=== PATIENT | male | born 1970 | race African-American/Black ===

== ENCOUNTER 2020-10-23 20:35 | Emergency (ER) | payer BC ==
[~2020-10-23] VITALS: Ht 162.6 cm; Wt 86.0 kg
[2020-10-23] MEDS ORDERED: LOSARTAN POTASS50 MG PO (21:14)
[2020-10-23] MEDS ORDERED: CHOLESTEROL MED (21:15)
[2020-10-23 21:40] LABS: HEMOGLOBIN 16.2 g/dl (14.0-18.0); IMMATURE GRANULOCYTES 0.4 % (0.0-5.0); MEAN CELL VOLUME 93.9 fL CALC (80.0-100.0); MEAN CORPUSCULAR HGB CONC 33.1 g/dL CAL (32.0-36.0); NEUT# 3.75 thou/uL (1.82-7.42); RED BLOOD COUNT 5.22 mill/uL (4.70-6.10); RED CELL DISTRI WIDTH 13.5 % (11.5-15.5)
[2020-10-23 21:51] LABS: ALBUMIN 4.4 g/dL (3.2-5.0); ALKALINE PHOSPHATASE 54 u/l (38-126); ANION GAP 15 (6-22 (CALC)); BILIRUBIN, TOTAL 1.1 mg/dL (0.0-1.4); BUN 19 mg/dL (9-20); BUN/CREATININE RATIO 19 (12-20 (CALC)); CARBON DIOXIDE 22 mmol/l (22-30); CHLORIDE 104 mmol/l (95-108); GFR > 60 ML/MIN (>=60 (CALC)); GFR FOR AFR.AMER. > 60 ML/MIN (>=60 (CALC)); SGOT/AST 37 u/l (17-59); SODIUM 137 mmol/l (137-146); TOTAL PROTEIN 8.1 g/dL (6.3-8.2)
[2020-10-23 21:58] LABS: URINE BILIRUBIN - DIPSTICK NEGATIVE (NEGATIVE); URINE BLOOD DIPSTICK TRACE-LYSED (NEGATIVE); URINE COLOR YELLOW; URINE GLUCOSE - DIPSTICK NEGATIVE (NEGATIVE); URINE KETONE NEGATIVE (NEGATIVE); URINE LEUK ESTERASE NEGATIVE (NEGATIVE); URINE NITRITE - DIPSTICK NEGATIVE (Negative); URINE PROTEIN - DIPSTICK NEGATIVE (NEG-TRACE); URINE SPECIFIC GRAVITY >=1.030; URINE UROBILINOGEN - DIPSTICK 0.2 E.U./dL (0.2)
[2020-10-23] MEDS ORDERED: IBUPROFEN600 MG PO (22:14)
[2020-10-23 22:30] VITALS: BP 151/99
== END 2020-10-23 22:42 | disposition home or self-care (01) | DRG 556 ==
LOC: ED 20:35
PROVIDERS: Emergency Medicine
DX: M25.562 Pain in left knee (principal); E79.0 Hyperuricemia without signs of inflammatory arthritis and tophaceous disease; I10 Essential (primary) hypertension; R11.2 Nausea with vomiting, unspecified; R10.9 Unspecified abdominal pain
CPT/HCPCS: L1830

== ENCOUNTER 2022-05-29 20:56 | Emergency (ER) | payer BC ==
[~2022-05-29] VITALS: Ht 162.6 cm; Wt 86.0 kg
[~2022-05-29 20:56] MED LIST: CHOLESTEROL MED; IBUPROFEN600 MG PO; LOSARTAN POTASS50 MG PO
[2022-05-29 21:10] VITALS: BP 148/111
[2022-05-29 21:15] VITALS: BP 149/99
[2022-05-29 21:30] VITALS: BP 162/112
[2022-05-29 21:46] VITALS: BP 162/112
== END 2022-05-29 21:52 | disposition home or self-care (01) | DRG 607 ==
LOC: ED 20:56
DX: L50.9 Urticaria, unspecified (principal); I10 Essential (primary) hypertension

== ENCOUNTER 2024-08-20 09:01 | Day surgery (SDC) | payer BC ==
[~2024-08-20] VITALS: Ht 160 cm; Wt 78.9 kg
[~2024-08-20 09:01] MED LIST changes: +AMBIEN10 MG PO; +ESZOPICLONE2 MG PO; +LOSARTAN PO; +ROSUVASTATIN CA20 MG PO
[2024-08-20] MEDS ORDERED: FAMOTIDINE 10MG/ML 2ML SDV IV ONE (09:08)
[2024-08-20] MEDS ORDERED: SODIUM CHLORIDE 0.9% 1,000 ML IV ONE (09:08)
[2024-08-20] MEDS ORDERED: MIDAZOLAM HCL 2 MG/2 ML VIAL ONE (09:45)
[2024-08-20 10:59] VITALS: BP 120/85
[2024-08-20] MEDS ORDERED: PROPOFOL 200 MG/20 ML VIAL IV ONE (12:16)
== END 2024-08-20 11:10 | disposition home or self-care (01) | DRG 951 ==
LOC: ENDO 09:01
PROVIDERS: ATTEND Surgery
PROC: 0DJD8ZZ Inspection of Lower Intestinal Tract, Via Natural or Artificial Opening Endoscopic (ICD-10-PCS; principal; 2024-08-20)
DX: Z12.11 Encounter for screening for malignant neoplasm of colon (principal); K64.8 Other hemorrhoids; I10 Essential (primary) hypertension; Z01.818 Encounter for other preprocedural examination; Z11.52 Encounter for screening for COVID-19